=== PATIENT | female | born 1950 | race African-American/Black ===

== ENCOUNTER 2016-11-08 11:23 | Emergency (ER) | payer OTHER ==
[~2016-11-08] VITALS: Ht 167.6 cm; Wt 122.4 kg
[~2016-11-08 11:23] MED LIST: LORT7.5T3 PO; NAPR550 PO; Z.0.NO CURRENT MEDS
[2016-11-08 11:39] VITALS: BP 154/89; PULSE 73; RESP 16; TEMP 97.8; O2SAT 99
[2016-11-08] MEDS ORDERED: CARV6.252 PO (12:12)
[2016-11-08] MEDS ORDERED: TRIA37.53 PO (12:12)
[2016-11-08] MEDS ORDERED: MELO-1 PO (12:54)
[2016-11-08] MEDS ORDERED: CYCL1TAB29 PO (12:54)
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
== END 2016-11-08 13:00 | disposition home or self-care (01) ==
LOC: PHEFT 11:23
DX: M62.838 Other muscle spasm (principal); T14.8 Other injury of unspecified body region; V43.52XA Car driver injured in collision with other type car in traffic accident, initial encounter; Y93.9 Activity, unspecified; Y92.9 Unspecified place or not applicable; Y99.9 Unspecified external cause status; I10 Essential (primary) hypertension
CPT/HCPCS: 99283